=== PATIENT | male | born 1945 | race Caucasian/White ===

== ENCOUNTER 2020-02-18 11:02 | Outpatient (CLI) | payer MEDICARE, BC ==
[2020-02-18 11:48] LABS: #Basophils 0.1 thou/uL (0.0-0.2); #Eosinphils 0.2 thou/uL (0.0-0.7); #Lymphocytes 1.3 thou/uL (1.20-3.40); #Monocytes 0.7 thou/uL (0.11-0.59); #Neutrophils 9.7 thou/uL (1.40-6.50); %Basophils 0.9 % (0.0-1.0); %Eosinophils 1.8 % (0.0-10.0); %Lymphocytes 10.7 % (21.0-51.0); %Neutrophils 80.6 % (42.0-75.0); Hemoglobin 14.9 g/dL (14.0-18.0); Mean Corpuscular HGB CONC 33.6 g/dL (32.0-36.0); Mean Corpuscular Hemoglobin 33.3 pg (27.0-31.0); Mean Corpuscular Volume 99.2 fL (78.0-98.0); Platelet Count 319 thou/uL (130-400); RBC Distribution Width 11.4 % (11.5-14.5); Red Blood Cell (RBC) Count 4.48 mill/uL (4.70-6.10); White Blood Cell (WBC) Count 12.1 thou/uL (4.8-10.8)
[2020-02-18 12:00] LABS: ALT (SGPT) 9 U/L (8-55); AST (SGOT) 12 U/L (5-34); Albumin 4.3 g/dL (3.4-4.8); Alkaline Phosphatase 50 U/L (40-110); Anion Gap 16 mmol/L (10-20); BUN (Urea Nitrogen) 20 mg/dL (8.4-25.7); Bilirubin, Total 0.4 mg/dL (0.2-1.2); Calc. Creatinine Clearance 0 mL/min (70-130); Calcium 9.4 mg/dL (7.8-10.44); Carbon Dioxide 22 mmol/L (23-31); Cardiac Risk 3.6 (Less than 4.5); Chloride 108 mmol/L (98-107); Cholesterol 149 mg/dl (< 200 Desired); Globulin 3.1 g/dL (2.4-3.5); Glucose 82 mg/dL (83-110); HDL Cholesterol 41 mg/dL (>60 Neg Risk); LDL Cholesterol, Calculated 74 mg/dL; Potassium 4.2 mmol/L (3.5-5.1); Protein, Total 7.4 g/dL (5.8-8.1); Sodium 142 mmol/L (136-145); Triglycerides 172 mg/dL (Less than 150)
--- NOTE | 2020-02-18 12:57 | RAD ---
RIGHT KNEE 4 VIEWS: HISTORY: Fell in shower. FINDINGS: Marked arthritic changes of the knee. Severe medial compartment narrowing. Lateral compartment and patellofemoral degenerative change also present. Extensive vascular calcifications. IMPRESSION: Severe osteoarthritic change of the knee. No acute findings. POS: ALEN
[2020-02-18 17:54] LABS: Hemoglobin A1c 6.1 % (4.0-6.0)
== END 2020-02-18 11:03 | disposition home or self-care (01) ==
LOC: MADLAB 11:02
PROVIDERS: ATTEND Family Medicine
DX: M25.561 Pain in right knee (principal); E11.9 Type 2 diabetes mellitus without complications; I10 Essential (primary) hypertension; E78.2 Mixed hyperlipidemia; M17.11 Unilateral primary osteoarthritis, right knee
CPT/HCPCS: 36415; 80053; 80061; 83036; 85025

== ENCOUNTER 2020-03-06 10:32 | Emergency (ER) | payer MEDICARE, BC ==
--- NOTE | 2020-03-06 11:18 | RAD ---
CHEST 1 VIEW: Date: 03/06/2020 HISTORY: Cough. Low O2 saturation. COMPARISON: 03/17/2014. FINDINGS: There is cardiomegaly with bilateral vascular congestion and increased linear and interstitial markin gs bilaterally, particularly in the perihilar regions, left greater than right. No significant pleura l effusion. No confluent pneumonia. Appearance is overall stable from the prior study of 03/17/2014. IMPRESSION: 1. Cardiomegaly with poor inspiration and prominent increased linear and interstitial markings in th e perihilar regions bilaterally, somewhat worse on the left side, although with little change from pr ior exam. 2. No confluent lobar pneumonia. 3. Coexistent COVID pneumonia certainly cannot be excluded. POS: AH
[2020-03-06 11:35] LABS: ALT (SGPT) 13 U/L (8-55); AST (SGOT) 23 U/L (5-34); Albumin 3.5 g/dL (3.4-4.8); Alkaline Phosphatase 36 U/L (40-110); Anion Gap 15 mmol/L (10-20); BUN (Urea Nitrogen) 20 mg/dL (8.4-25.7); Band 5 % (5-11); Bilirubin, Total 0.2 mg/dL (0.2-1.2); Calc. Creatinine Clearance 0 mL/min (70-130); Calcium 7.7 mg/dL (7.8-10.44); Carbon Dioxide 24 mmol/L (23-31); Eosinophils 2 % (0-10); Globulin 2.9 g/dL (2.4-3.5); Glucose 194 mg/dL (83-110); Hemoglobin 12.6 g/dL (14.0-18.0); Lymphocytes 5 % (21-51); MDiff Complete? YES; Mean Corpuscular HGB CONC 33.3 g/dL (32.0-36.0); Mean Corpuscular Hemoglobin 33.2 pg (27.0-31.0); Mean Corpuscular Volume 99.7 fL (78.0-98.0); Mean Platelet Volume 5.9 fL (7.4-10.4); Monocytes 3 % (0-10); Neutrophil 84 % (42-75); Nucleated RBC 2 % (0); Platelet Count 226 thou/uL (130-400); Protein, Total 6.4 g/dL (5.8-8.1); RBC Distribution Width 11.3 % (11.5-14.5); White Blood Cell (WBC) Count 7.7 thou/uL (4.8-10.8)
[2020-03-06 11:42] LABS: Chloride 101 mmol/L (98-107); Potassium 4.1 mmol/L (3.5-5.1); Sodium 136 mmol/L (136-145)
--- NOTE | 2020-03-06 12:21 | CT ---
CT OF THE THORAX WITHOUT IV CONTRAST INDICATION: Hypoxia history of Covid COMPARISON: Prior high-resolution chest CT dated August 19, 2011 FINDINGS: LUNGS: There are perihilar interstitial and groundglass airspace opacities that are suspicious for an atypical infectious process can be seen with Covid pneumonia. This is superimposed on scattered interstitial opacities with scattered bronchiectasis better seen on high-resolution CT evaluation michelle ed August 19, 2011 from the [facility]. Pleural spaces: Clear Lymph nodes: A few mildly prominent mediastinal lymph nodes. There is one right paratracheal lymph no de measuring 1 cm. There is a mildly prominent prevascular lymph node measuring 1 cm. Heart and great vessels: The lack of IV contrast limits interrogation of the heart and great vessels. There is scattered thoracic and coronary artery calcifications. Upper abdomen: There is small hiatal hernia. Visualized adrenal glands are normal appearing. Osseous structures: No acute osseous abnormality. IMPRESSION: 1. Bilateral perihilar interstitial and airspace opacities suspicious for an atypical infectious proc ess such as Covid pneumonia. 2. Chronic interstitial fibrosis with scattered bronchiectasis. 3. Mildly prominent mediastinal lymph nodes. 4. Small hiatal hernia.
[2020-03-06] MEDS ORDERED: Dexamethasone 10 MG/ML VIAL ONE (12:56)
[2020-03-06] MEDS ORDERED: Sodium Chloride 0.9% 250 ML 250 ML ONE (12:56)
[2020-03-06] MEDS ORDERED: Sodium Chloride 0.9% 100 ML ONE (12:56)
[2020-03-06] MEDS ORDERED: Azithromycin 500 MG VIAL ONE (12:56)
[2020-03-06] MEDS ORDERED: cefTRIAXone\\ROCEPHIN 2 GM VIAL ONE (12:56)
[2020-03-06] MEDS ORDERED: Enoxaparin Sodium 40 MG/0.4 ML SYRINGE ONE (12:56)
[2020-03-06 14:24] LABS: SARS-CoV-2 NAA Rapid Test DETECTED (NotDetected)
== END 2020-03-06 13:45 | disposition short-term general hospital (02) ==
LOC: MADERS 10:32
DX: U07.1 COVID-19 (principal); J12.89 Other viral pneumonia; R09.02 Hypoxemia; E11.9 Type 2 diabetes mellitus without complications; I10 Essential (primary) hypertension; Z79.82 Long term (current) use of aspirin; Z79.899 Other long term (current) drug therapy
CPT/HCPCS: 0240U; 71045; 71250; 80053; 83605; 83880; 84484; 85025; 87040; 87804 ×2; 93005; 36415; 96365; 96367; 96372; J0456; J0696; J1100; J1650; J3490; J7050

== ENCOUNTER 2020-10-17 12:55 | Emergency (ER) | payer MEDICARE, BC | END 2020-10-17 14:30 | disposition home or self-care (01) | LOC: MADERS 12:55 | DX: S83.422A Sprain of lateral collateral ligament of left knee, initial encounter (principal); E11.9 Type 2 diabetes mellitus without complications; I11.0 Hypertensive heart disease with heart failure; I50.9 Heart failure, unspecified; Z79.82 Long term (current) use of aspirin; Z79.899 Other long term (current) drug therapy; X50.1XXA Overexertion from prolonged static or awkward postures, initial encounter ==